=== PATIENT | female | born 1985 | race Caucasian/White ===

== ENCOUNTER 2022-03-12 21:09 | Emergency (ER) | payer SELFPAY ==
[~2022-03-12] VITALS: Ht 154.9 cm; Wt 72.6 kg
[2022-03-12 21:09] VITALS: BP 232/141
[~2022-03-12 21:09] MED LIST: FERR325E14 PO; FURO-572 PO; LISI-486 PO; METO25TA14 PO
--- NOTE | 2022-03-12 21:09 | NUR ---
TO [facility] WITH [place] [employer]
[2022-03-12 22:30] VITALS: BP 98/54
--- NOTE | 2022-03-12 22:30 | NUR ---
PATIENT BIB [employer]. PATIENT EXAMINED BY DR. LACY. PATIENT MEDICALLY CLEARED AND RELEASED IN CUSTODY IN STABLE CONDITION. ORIGINAL PRE-BOOK FORM GIVEN TO OFFICER ZAINA #[id number]
== END 2022-03-12 22:30 ==
LOC: MED 21:09
DX: I10 Essential (primary) hypertension (principal); J45.909 Unspecified asthma, uncomplicated; F17.210 Nicotine dependence, cigarettes, uncomplicated; Z72.89 Other problems related to lifestyle
CPT/HCPCS: 99283